=== PATIENT | female | born 1960 | race Caucasian/White ===

== ENCOUNTER → 2020-07-31 08:42 | Outpatient (CLI) | payer OTHER, SELFPAY ==
[2020-07-31 11:33] LABS: Coronavirus 19 IgG Antibody Negative (Negative); Coronavirus 19 IgM Antibody Negative (Negative)
== END ==
PROVIDERS: Visit Provider Internal Medicine Gastroenterology
DX: Z01.818 Encounter for other preprocedural examination (principal); Z12.11 Encounter for screening for malignant neoplasm of colon
CPT/HCPCS: 36415; 86328

== ENCOUNTER 2020-08-02 07:37 | Day surgery (SDC) | payer OTHER, SELFPAY ==
[2020-07-30 10:07] VITALS: BMI 29.5
[2020-08-02] VITALS (7 sets, daily range): BP systolic 110–164; BP diastolic 67–91; PULSE 65–77; RESP 16–18; TEMP 36.4–36.5; O2SAT 92–99
--- NOTE | 2020-08-02 08:19 | P.PN_ITS ---
[facility] Anesthesia Checklist - Structural Data Admitted From: Home Planned Operative Procedure/s: colonoscopy Consent for Planned Operative Procedure(s) Verified: Yes - Airway Assessment C-Spine Mobility Assessed: Yes TMJ Mobility Assessed: Yes Dentition: Good Dentition - Neurological Assessment Level of Consciousness: Awake, Alert, Appropriate - Anesthesia Plan Anesthesia Risk discussed: Yes Anesthesia Plan: Verified ASA Class: II Anesthesia Type: MAC [facility] History I have reviewed the patient's past medical history: Yes Medical History: Reports:: Hyperlipidemia, Hypertension Denies:: Cancer, Diabetes Mellitus Type 1, Diabetes Mellitus Type 2, Internal Pacemaker, MRSA, Seizures *Have you ever received a pneumonia vaccine?: No *Have you received a flu vaccine this season?: No Anesthesia experience/problems:: none Other Surgeries: No: Pacemaker Amputation: No Fractures: No - *Social History Last grade of school completed: 9th or 10th Alcohol Intake: never Substance Use Type: denies use *Occupational Status:: employed Housing: house Household Members: spouse *Travel in the last 8 weeks: None Family Hx:: No significant family history
--- NOTE | 2020-08-02 08:30 | P.PCN_ITS ---
[facility] Procedure Note Procedure Note:: Colonoscopy Procedure Report: Colonoscopy with cold snare polypectomy Endoscopist: Octaviano Quintanilla II, MD Referring physician: RAYMOND Wheeler Date of Procedure: August 02, 2020 Equipment: Olympus 180 variable stiffness pediatric colonoscope Sedation: MAC sedation Indication: Mrs. Lawrence is a 60-year-old female who is here for initial screening colonoscopy. She reports no abdominal pain, weight loss, change in her bowel habits or rectal bleeding. She reports no family history of colon cancer. Her brother had prostate cancer. Procedure: Prior to the procedure, a history and physical exam was performed, and patient's medications and allergies were reviewed. The risks, benefits and alternatives of the sedation and procedure were discussed with the patient. All questions were answered and informed consent was obtained. The patient was brought to the procedure room. Patient identification and proposed procedure were verified by the physician and the nurse. The patient was placed in a left lateral decubitus position and the scope was passed under direct vision. Throughout the p rocedure, the patient's blood pressure, pulse, and oxygen saturations were monitored continuously. The colonoscopy was accomplished without difficulty. The patient tolerated the procedure well. Findings: On digital rectal examination there was normal rectal tone. There were no external hemorrhoids. The colonoscope was introduced through the anal canal to the rectum and advanced to the cecum. The ileocecal valve and appendiceal orifice were identified. The scope was advanced a short distance into the ileum which appeared grossly normal. The scope was then withdrawn into the colon. The cecum, ascending and transverse colons were grossly normal. There were 2 diminutive polyps in the descending colon (3 and 5 mm) which were both removed via cold snare polypectomy. The remainder of the sigmoid and rectum were normal. There were no other mucosal abnormalities identified. Upon retroflexion within the rectum there were grade 1 internal hemorrhoids.The preparation was excellent throughout with [place] Preparation Score of 9. The cecal time was 10 minutes. Impression: 1. Diminutive descending colon polyps x2 2. Grade 1 internal hemorrhoids Plan: I will follow up the polyp pathology and recommend repeat colonoscopy again in 7-10 years based upon the polyp histology. I would encourage bulk fiber supplementation on a long-term daily maintenance basis.
== END 2020-08-02 09:35 | disposition home or self-care (01) ==
LOC: OUTP 07:40
PROVIDERS: PCP Nurse Practitioner Family; Visit Provider Internal Medicine Gastroenterology
PROC: 0DJD8ZZ Inspection of Lower Intestinal Tract, Via Natural or Artificial Opening Endoscopic (ICD-10-PCS; CPT 45378; principal; 2020-08-02 08:30)
DX: Z12.11 Encounter for screening for malignant neoplasm of colon (principal); K63.5 Polyp of colon; K64.0 First degree hemorrhoids; Z80.42 Family history of malignant neoplasm of prostate; I10 Essential (primary) hypertension; E78.5 Hyperlipidemia, unspecified
CPT/HCPCS: 45385

== ENCOUNTER 2023-08-09 20:41 | Emergency (ER) | payer BC, MEDICAID, SELFPAY ==
[2023-08-09 20:41] VITALS: BP 154/89; PULSE 87; RESP 20; TEMP 36.6; O2SAT 18; BMI 30.2
--- NOTE | 2023-08-09 21:26 | XR_ITS ---
PROCEDURE INFORMATION: Exam: XR Right Foot Exam date and time: 08/09/2023 9:25 PM Age: 63 years old Clinical indication: Injury or trauma; Fall; Blunt trauma; Patient HX: Patient tripped over a box and fell. Right foot pain. TECHNIQUE: Imaging protocol: Radiologic exam of the right foot. Views: 3 or more views. COMPARISON: No relevant prior studies available. FINDINGS: Bones/joints: Oblique, minimally displaced fracture 5th metatarsal bone, without articular extension. Soft tissues: Normal. IMPRESSION: Oblique, minimally displaced fracture 5th metatarsal bone, without articular extension.
--- NOTE | 2023-08-09 21:48 | PC.NURSE ---
rounded on patient, no needs at this time
--- NOTE | 2023-08-09 22:22 | HMH.EDGENADL ---
Discharge Plan Disposition Patient Disposition: Home, Self-Care Prescriptions Prescriptions: No Action cetirizine 10 MG tablet 10 mg PO DAILY valacyclovir 1,000 MG tablet 1,000 mg PO BID meloxicam 15 MG tablet 15 mg PO DAILY aspirin 81 MG tablet,delayed release (DR/EC) 81 mg PO DAILY alprazolam 0.25 MG tablet 0.25 mg PO DAILY gabapentin 800 MG tablet 800 mg PO BID simvastatin 20 MG tablet 20 mg PO DAILY lisinopril 10 MG tablet 10 mg PO DAILY fluticasone propionate 120 SPR/BOT bottle 1 spr NS BID lysine HCl 500 MG capsule 500 mg PO DAILY Referrals Follow up/Referrals: Nickolas Cervantes DO [Staff Physician] - See instructions Melania Duarte [Primary Care Provider] - See instructions Activity Restrictions/Add. Instructions Additional Instructions/Restrictions: Call your family doctor to establish care for this visit to the emergency department and schedule follow-up within 48 hours to ensure improvement. If you have any worsening of your condition or any other concerning signs or symptoms, return to the emergency department or your primary care doctor for further evaluation. Take Tylenol 1000 mg every 6 hours (4 times daily) and ibuprofen 400 mg every 6 hours (4 times daily) as needed with food and water to prevent GI upset and kidney damage. You can bear weight on the heel of your boot with help with crutches. Do not bear weight on the front of your foot or the ball of your foot. Follow-up with orthopedics, information here for Dr. Cervantes. Clinical Impressions Clinical Impression: Closed nondisplaced fracture of fifth right metatarsal bone Qualifiers: Encounter type: initial encounter Qualified Code(s): S92.354A - Nondisplaced fracture of fifth metatarsal bone, right foot, initial encounter for closed fracture Discharge ED Provider: David Vera General Adult HPI General Chief complaint: Extremity Injury, Lower Stated complaint: AO fall 08/09, right foot pain Time Seen by Provider: 08/09/23 21:43 Mode of Arrival: Wheelchair Source of Information: Patient Limitations: No Limitations Description of Symptoms (Recalled from ER Triage Doc. by RN): pt tripped and fell over box at home, no loc but has right outside left foot pain and it is bruised and swollen in appearance. pms is intact History of Present Illness HPI narrative: 63-year-old female no relevant medical history presenting after falling over a box. Twisted her foot, felt a pop. And, able to bear weight but with significant pain. Has not taken anything prior to this Related Data Home Medications Medication Instructions Recorded Confirmed alprazolam 0.25 mg tablet 0.25 mg PO DAILY Anxiety 08/02/20 08/02/20 aspirin 81 mg tablet,delayed 81 mg PO DAILY heart health 08/02/20 08/02/20 release cetirizine 10 mg tablet 10 mg PO DAILY allergies 08/02/20 08/02/20 fluticasone propionate 50 1 spr NS BID allergies 08/02/20 08/02/20 mcg/actuation nasal spray,suspension gabapentin 800 mg tablet 800 mg PO BID nerve pain 08/02/20 08/02/20 lisinopril 10 mg tablet 10 mg PO DAILY blood pressure 08/02/20 08/02/20 lysine HCl 500 mg capsule 500 mg PO DAILY fever blister 08/02/20 08/02/20 meloxicam 15 mg tablet 15 mg PO DAILY Arthritis 08/02/20 08/02/20 simvastatin 20 mg tablet 20 mg PO DAILY Cholesterol 08/02/20 08/02/20 valacyclovir 1 gram tablet 1,000 mg PO BID fever blister 08/02/20 08/02/20 Allergies Allergy/AdvReac Type Severity Reaction Status Date / Time No Known Allergies Allergy Verified 07/30/20 10:05 [facility] Disclaimer: The information contained in this section may have been updated after the patient was seen, as this information can be updated by other users. Social History Smoking Status: Never smoker alcohol intake: never substance use type: denies use current occupational status: employed Travel in the last 8 weeks: None household members: spouse housing: house
[2023-08-09 22:34] VITALS: BP 148/90; PULSE 80; RESP 20; TEMP 36.6; O2SAT 99
== END 2023-08-09 22:53 | disposition home or self-care (01) ==
PROVIDERS: Emergency Provider Emergency Medicine; PCP Nurse Practitioner Family
DX: S92.354A Nondisplaced fracture of fifth metatarsal bone, right foot, initial encounter for closed fracture (principal); X50.1XXA Overexertion from prolonged static or awkward postures, initial encounter
CPT/HCPCS: 73630; 99283

== ENCOUNTER 2023-09-21 10:03 | Outpatient (CLI) | payer BC, MEDICAID, SELFPAY ==
--- NOTE | 2023-09-21 10:09 | XR_ITS ---
FINAL REPORT CLINICAL HISTORY: right foot fx 1-2 months ago COMPARISON: 08/09/2023 FINDINGS: RIGHT FOOT: Three views of the right foot were obtained. The oblique fracture in the mid fifth metatarsal noted on the prior exam of July 2023 remains present. The alignment is unchanged. No acute fracture or dislocation is present. The joint spaces are intact. There is no soft tissue abnormality. IMPRESSION: Oblique fracture of the mid fifth metatarsal seen in July 2023 remains present with no significant change in the alignment of the fracture fragments. Reviewed, Interpreted and Dictated by Marcus Valdez III, MD Transcribed by Racquel Daugherty Authenticated and [facility]
== END 2023-09-21 23:59 ==
LOC: RAD 10:05
PROVIDERS: PCP Nurse Practitioner Family; Visit Provider Orthopaedic Surgery
DX: S92.354A Nondisplaced fracture of fifth metatarsal bone, right foot, initial encounter for closed fracture (principal); W19.XXXA Unspecified fall, initial encounter
CPT/HCPCS: 73630

== ENCOUNTER 2023-10-26 10:15 | Outpatient (CLI) | payer BC, MEDICAID, SELFPAY ==
--- NOTE | 2023-10-26 10:24 | XR_ITS ---
FINAL REPORT CLINICAL HISTORY: right foot pain COMPARISON: 09/21/2023 FINDINGS: RIGHT FOOT: Three views of the right foot were obtained. There is a an oblique fracture of the fifth metatarsal noted on a prior exam of September 21 and unchanged in appearance since that time. There is however no definite callus formation seen on this exam. The joint spaces are intact. There is no soft tissue abnormality. IMPRESSION: Prior fracture of the fifth metatarsal as described, without significant callus formation since the prior exam of September 21. Reviewed, Interpreted and Dictated by Marcus Valdez III, MD Transcribed by Racquel Daugherty Authenticated and [facility]
== END 2023-10-26 23:59 ==
LOC: RAD 10:16
PROVIDERS: PCP Nurse Practitioner Family; Visit Provider Orthopaedic Surgery
DX: M79.671 Pain in right foot (principal)
CPT/HCPCS: 73630